=== PATIENT | female | born 1945 | race Caucasian/White ===

== ENCOUNTER → 2023-09-18 18:36 | Outpatient (REF) | payer MEDICARE, SELFPAY | LOC: MRI 18:36 | PROVIDERS: ATTENDING PHYSICIAN Family Medicine | DX: E11.69 Type 2 diabetes mellitus with other specified complication (principal); M54.17 Radiculopathy, lumbosacral region | CPT/HCPCS: 72148 ==

== ENCOUNTER → 2023-11-06 07:06 | Outpatient (REF) | payer MEDICARE, SELFPAY | LOC: PAVMRI 07:06 | PROVIDERS: ATTENDING PHYSICIAN Physician Assistant Medical; FAMILY PHYSICIAN Family Medicine | DX: M25.561 Pain in right knee (principal) | CPT/HCPCS: 73721 ==

== ENCOUNTER 2024-01-01 18:03 | Emergency (ER) | payer MEDICARE, SELFPAY ==
[2024-01-01 18:06] VITALS: BP 163/97
[2024-01-01] MEDS: TORADOL 15 MG IV (19:09)
[2024-01-01] MEDS: ZOFRAN 4 MG IV (19:09)
[2024-01-01 19:14] VITALS: BMI 34.2
[2024-01-01 19:28] LABS: Urine Albumin Trace (Neg - Trace); Urine Bilirubin Negative (Negative); Urine Character Clear (Clear); Urine Color Yellow; Urine Glucose Negative (Negative); Urine Ketone Trace (Negative); Urine Leukocyte 1+ (Negative); Urine Nitrite Negative (Negative); Urine Occult Blood 2+ (Negative); Urine Specific Gravity 1.025 (<1.030); Urine Urobilinogen Negative (Neg - 1+)
[2024-01-01 20:00] LABS: Urine Mucus Few; Urine Red Blood Cell 0-2 /HPF (0-2)
[2024-01-01 20:05] VITALS: BP 134/82
[2024-01-01] MEDS: DILAUDID 0.5 MG IV (20:23)
--- NOTE | 2024-01-01 21:15 | EDRN ---
[facility] [employer] went over results and plan for discharge, patients pain has improved
--- NOTE | 2024-01-01 21:22 | ED.GENMED ---
History of Present Illness
General
Chief Complaint: Flank Pain
Source: patient
Exam Limitations: none
Time Seen by Provider: 01/01/24 18:25
Nursing documentation reviewed up to this point in time: agreed with
Travel History
Have you had any contact with someone who has COVID-19?: No
Do you have any symptoms of coronavirus? Fever > 100 degrees, chills, cough, shortness of breath, sore throat, loss of taste or smell, muscle aches, or headache?: No
History of Present Illness
History of Present Illness:
Patient to ED with complaint of left low back pain. Pain started yesterday. No history of trauma. Denies fever/chills, recent illness. Pain does not radiate. No bowel or bladder issues. Brought to ED by daughter for eval
Past History
Past History
ED Past Medical History: GERD and NIDDM
ED Past Surgical History: Gynecological, Orthopedic and Urological
Social History
Tobacco: Non-smoker
Alcohol: None
Drug: None
Personal:
Living: with family
Review of Systems
Review of Systems
Allergies reviewed?: Yes
All Other Systems: ROS reviewed and negative except as documented in HPI and ROS
Constitutional: Reports no symptoms
EENT: Reports no symptoms
Respiratory: Reports no symptoms
Cardiac: Reports no symptoms
ABD/GI: Reports no symptoms
: Reports no symptoms
Musculoskeletal: Reports back pain (left lower back pain)
Skin: Reports no symptoms
Neurological: Reports no symptoms
Psychiatric: Reports no symptoms
Phy Exam
General Physical Exam
General Presentation: well appearing and mild distress
General age: appears stated age
General Skin: warm and dry
General Habitus: normal
General Mental: alert
Gastrointestinal Exam
Gastrointestinal Exam: non tender and soft
Musculoskeletal Exam
Musculoskeletal Exam: neuro vasc intact
Skin Exam
Skin Exam: normal color, warm/dry and no rash
Psychiatric Exam
Psychiatric Exam: normal mood/affect
Course
Orders/Labs/Results
Orders:
Orders
01/01/24 18:35
Ketorolac [Toradol] 15 mg IV NOW STA
Ondansetron Injectable [Zofran] 4 mg IV NOW STA
01/01/24 19:16
Urinalysis Reflex To Culture Urgent
Date Specimen was Collected: 01/01/24
Time Specimen was Collected: 19:09
Urine Microscopic Reflex Cult Urgent
Urine Culture Urgent
MARCOS Source: U
Specimen Description:
Date Specimen was Collected: 01/01/24
Time Specimen was Collected: 19:09
01/01/24 19:39
CT Abd/pel Without Iv Or Oral Urgent
Comment:
Reason For Exam: left flank pain
01/01/24 20:21
HYDROmorphone [Dilaudid] 0.5 mg .ROUTE .STK-MED ONE
01/01/24 20:23
HYDROmorphone [Dilaudid] 0.5 mg IV NOW STA
Abnormal Lab Results
01/01/24
19:16
Urine Ketones Trace A
(Negative)
Ur Occult Blood Reflex 2+ A
(Negative)
Leukocyte Esterase Rfl 1+ A
(Negative)
Vital Signs
Initial and Last Documented VS:
Initial Vital Signs
Temp Pulse Resp BP Pulse Ox
98.4 F 82 18 163/97 97
01/01/24 18:06 01/01/24 18:06 01/01/24 18:06 01/01/24 18:06 01/01/24 18:06
Last Documented Vital Signs
Temp Pulse Resp BP Pulse Ox
98.4 F 75 16 134/82 94
01/01/24 18:06 01/01/24 20:05 01/01/24 20:05 01/01/24 20:05 01/01/24 20:05
*Radiology
Radiology exam reviewed: radiology read reviewed
*Pulse Oximetry
Patient hypoxic: no
*Critical Care Note
Total Time (30-74mins, 75-104mins- exclusive of procedures): Not Applicable
ED Attending Note
-
Portions of this chart may have been created with voice recognition software.� Occasional wrong word or��sound alike� substitutions may have occurred due to the inherent limitations of voice recognition software.
Discharge Plan
Departure
Patient Disposition: Home (Routine Discharge)
Date of Disposition: 01/01/24
Time of Disposition: 21:19
Patient with high blood pressure during this ER visit?: No
Condition: Good
Covid-19: Not Applicable
Discharge Problem:
Back pain
Instructions: Low back pain in adults, Narcotic Pain Medication
Prescriptions:
New
hydrocodone-acetaminophen 5-325 mg tablet
1 tab feeding tube DAILY PRN (Reason: Pain) Qty: 12 0RF
No Action
oxycodone-acetaminophen [Percocet] 1 EACH tablet
1 ea PO Q4HPRN PRN (Reason: pain) Qty: 15 0RF
Referrals:
Kel Whittington MD [Family Provider] - Follow up in 2-3 days
Interventions
Interventions:
*Risk Screen - Suicide Last Done: 01/01/24 19:14
*General Assessment Last Done: 01/01/24 19:14
*Neglect/Abuse Screening Last Done: 01/01/24 19:14
ED- Fall Risk Assessment Last Done: 01/01/24 20:05
QS-Cbhyrk-Opulceliep Assessment Last Done: 01/01/24 20:05
ED-Female Genitourinary Assessment Last Done: 01/01/24 20:05
Discharge Date and Time
Print Language: CYPRIOT
Musculoskeletal Injury Exam
Musculoskeletal Injury Exam
Left Lower Back:
Pain with Movement?: Moderate
Tender to palpation?: Moderate
Soft tissue swelling?: None
External deformity and angulation?: None
Joint effusion?: None
Contusion?: None
Hematoma-local bleeding into tissue?: None
Strain- Sprain- Tear (Connective tissue injury)?: Moderate
Crepitus with movement?: No
Joint instability?: No
Malalignment/deformity?: No
Range of motion: Limited
Distal skin color and temperature: normal-warm & good color
Capillary Refill: normal
Normal distal neurovascular exam?: Yes
[2024-01-01 21:47] VITALS: BP 119/79
== END 2024-01-01 21:49 | disposition home or self-care (01) ==
LOC: EMR 18:03
PROVIDERS: Nurse Practitioner; EMERGENCY PHYSICIAN Emergency Medicine; FAMILY PHYSICIAN Family Medicine
DX: M54.50 Low back pain, unspecified (principal)
CPT/HCPCS: 99284; 96374; 96375 ×2; 74176; 81003; 81015; 87086

== ENCOUNTER 2024-01-10 12:20 | Outpatient (RCR) | payer MEDICARE, SELFPAY | END 2024-01-10 23:59 | disposition home or self-care (01) | LOC: ROT 12:20 | PROVIDERS: ATTENDING PHYSICIAN Orthopaedic Surgery; FAMILY PHYSICIAN Family Medicine | DX: Z47.89 Encounter for other orthopedic aftercare (principal); M65.332 Trigger finger, left middle finger; M65.342 Trigger finger, left ring finger; Z73.6 Limitation of activities due to disability | CPT/HCPCS: 97022; 97110; 97140; 97166; 97535 ==

== ENCOUNTER 2024-02-01 11:28 | Outpatient (RCR) | payer MEDICARE, SELFPAY | END 2024-02-01 23:59 | disposition home or self-care (01) | LOC: RPT 11:28 | PROVIDERS: ATTENDING PHYSICIAN Orthopaedic Surgery; FAMILY PHYSICIAN Family Medicine | DX: M51.36 Other intervertebral disc degeneration, lumbar region (principal); Z73.6 Limitation of activities due to disability | CPT/HCPCS: 97110; 97112; 97162 ==